=== PATIENT | male | born 1955 | race African-American/Black ===

== ENCOUNTER 2019-03-20 21:22 | Emergency (ER) | payer MEDICAID, OTHER ==
[~2019-03-20] VITALS: Ht 177.8 cm; Wt 61.0 kg
[2019-03-21 06:13] VITALS: BP 133/77
== END 2019-03-21 07:32 | disposition home or self-care (01) ==
LOC: ER 21:22
DX: F10.129 Alcohol abuse with intoxication, unspecified (principal); S01.111A Laceration without foreign body of right eyelid and periocular area, initial encounter; R41.82 Altered mental status, unspecified; F17.200 Nicotine dependence, unspecified, uncomplicated; Y90.9 Presence of alcohol in blood, level not specified; W18.39XA Other fall on same level, initial encounter; Y93.89 Activity, other specified; Y92.89 Other specified places as the place of occurrence of the external cause; Y99.8 Other external cause status
CPT/HCPCS: 36415; 80320; 99284; G0480

== ENCOUNTER 2020-02-10 17:57 | Emergency (ER) | payer MEDICAID ==
[~2020-02-10] VITALS: Ht 182.9 cm; Wt 90.0 kg
[2020-02-10] MEDS ORDERED: SODIUM CHLORIDE 0.9% 1,000 ML IV ONE (18:45)
[2020-02-10] MEDS ORDERED: CYANOCOBALAMIN 1000MCG/ML VIAL IM ONE (18:45)
[2020-02-10 19:15] LABS: HEMATOCRIT. 38.6 % (42.0-52.0); HEMOGLOBIN. 13.4 g/dL (14.0-18.0); MEAN CORPUSCULAR HEMOGLOBIN 36.7 pg (28.0-32.0); MEAN CORPUSCULAR VOLUME 105.9 fL (80.0-94.0); MEAN PLATELET VOLUME 7.3 fl (7.4-10.4); PLATELET 173 x1000/uL (130-400); RED BLOOD CELL COUNT 3.64 mill/uL (4.7-6.1); RED CELL DISTRIBUTION WIDTH 13.7 % (11.6-14.6)
[2020-02-10 19:24] LABS: CHLORIDE 107 mEq/L (98-107)
[2020-02-10 19:37] LABS: ETHANOL BLOOD 386 mg/dL
[2020-02-10 19:45] LABS: PLATELET ESTIMATE NORMAL
[2020-02-10 23:45] LABS: CLARITY URINE CLEAR (CLEAR); COLOR URINE DARK YELLOW (YELLOW); KETONES URINE 2+ (NEGATIVE); LEUKOCYTE ESTERASE URINE 1+ (NEGATIVE); NITRITE URINE NEGATIVE (NEGATIVE); OCCULT BLOOD URINE NEGATIVE (NEGATIVE); PROTEIN URINE 2+ (NEGATIVE); SPECIFIC GRAVITY URINE 1.024 (1.005-1.030)
[2020-02-11 00:07] LABS: *AMPHETAMINES SCREEN URINE NEGATIVE (NEGATIVE); *BARBITURATES SCREEN URINE NEGATIVE (NEGATIVE); CANNABINOID URINE SCREEN NEGATIVE (NEGATIVE); OPIATES URINE SCREEN NEGATIVE (NEGATIVE); PHENCYCLIDINE URINE SCREEN NEGATIVE (NEGATIVE)
[2020-02-11 00:08] LABS: *BENZODIAZEPINES SCREEN URINE NEGATIVE (NEGATIVE); *COCAINE SCREEN URINE PRESUMTIVE POSITIVE (NEGATIVE); METHADONE URINE SCREEN NEGATIVE (NEGATIVE)
[2020-02-11 05:56] VITALS: BP 133/81
== END 2020-02-11 05:58 | disposition home or self-care (01) ==
LOC: ER 17:57
DX: F10.129 Alcohol abuse with intoxication, unspecified (principal); Y90.8 Blood alcohol level of 240 mg/100 ml or more; D64.9 Anemia, unspecified; E86.0 Dehydration; E87.6 Hypokalemia; R94.5 Abnormal results of liver function studies; E16.2 Hypoglycemia, unspecified
CPT/HCPCS: 36415; 80053; 80305; 80320; 81003; 85025; 93005; 96360; 96372; 99285; J3420; J7030; G0480

== ENCOUNTER 2020-04-17 19:39 | Emergency (ER) | payer MEDICARE, MEDICAID ==
[~2020-04-17] VITALS: Ht 180.3 cm; Wt 82.0 kg
[2020-04-17] MEDS ORDERED: ACETAMINOPHEN 325MG TABLET PO SCH (20:42)
[2020-04-17] MEDS ORDERED: LIDOCAINE 1%/EPI 1:100,000 10 ML VIAL IJ SCH (20:45)
[2020-04-17 22:33] VITALS: BP 136/89
== END 2020-04-18 02:13 | disposition home or self-care (01) ==
LOC: ER 19:39
DX: S01.111A Laceration without foreign body of right eyelid and periocular area, initial encounter (principal); W01.198A Fall on same level from slipping, tripping and stumbling with subsequent striking against other object, initial encounter; Y93.89 Activity, other specified; Y92.89 Other specified places as the place of occurrence of the external cause; F10.20 Alcohol dependence, uncomplicated; Y90.9 Presence of alcohol in blood, level not specified
CPT/HCPCS: 70450; 72125; 99285; J3490